=== PATIENT | female | born 1955 | race Caucasian/White ===

== ENCOUNTER 2022-12-24 19:44 | Emergency (ER) | payer OTHER, SELFPAY ==
[2022-12-24] VITALS (11 sets, daily range): BP systolic 125–151; BP diastolic 63–94; PULSE 73–101; RESP 18–20; TEMP 36.5; O2SAT 94–98; BMI 32.3
--- NOTE | 2022-12-24 20:14 | ED.GENADULT ---
HPI - General Adult General Chief complaint: Abdominal Pain Stated complaint: abd pain Time Seen by Provider: 12/24/22 19:58 Source: patient Mode of arrival: Ambulatory History of Present Illness HPI narrative: 67-year-old female who is here for abdominal pain, nausea. No fevers. Her symptoms started yesterday and progressively worsening since then. She has had her gallbladder removed and a exploratory laparotomy many years ago for an ectopic . Her last bowel movement was a couple days ago. She did pass some flatus earlier this morning. She states she feels like she can throw up but has been unable to. Has not tried anything for symptoms prior to arrival. Related Data Home Medications Medication Instructions Recorded Confirmed [centrum vitamin] 1 tab PO QDAY ##0 04/01/17 [probiotic] ##0 04/01/17 Previous Rx's Medication Instructions Recorded ciprofloxacin HCl 500 mg tablet 500 mg PO BID 10 days #20 tabs 12/24/22 (Cipro) metronidazole 500 mg tablet 500 mg PO TID 10 days #30 tabs 12/24/22 Allergies Allergy/AdvReac Type Severity Reaction Status Date / Time NSAIDS (Non-Steroidal Allergy Mild GI ISSUES Verified 12/24/22 20:04 Anti-Inflamma [NSAIDS (NON-STEROIDAL ANTI-INFLAMMA] aspirin AdvReac Unknown N/V Verified 12/24/22 20:04 codeine AdvReac Unknown N/V Verified 12/24/22 20:04 Review of Systems Constitutional Constitutional: Reports as per HPI Cardiovascular Cardiovascular: Reports system reviewed and no additional complaints, except as documented Respiratory Respiratory: Reports system reviewed and no additional complaints, except as documented Gastrointestinal Gastrointestinal: Reports system reviewed and no additional complaints, except as documented Integumentary/Breasts Skin/Breast: Reports system reviewed and no additional complaints, except as documented Neurologic Neurologic: Reports system reviewed and no additional complaints, except as documented Hematologic/Lymphatic Hematologic/Lymphatic: Reports system reviewed and no additional complaints, except as documented Exam Initial Vital Signs Initial Vital Signs: Vital Signs Temperature 97.7 F 12/24/22 20:00 Pulse Rate 101 H 12/24/22 20:00 Respiratory Rate 20 12/24/22 20:00 Blood Pressure 125/88 12/24/22 20:00 Pulse Oximetry 96 12/24/22 20:00 Oxygen Delivery Method Room Air 12/24/22 20:00 HENMT Head: normal to inspection and normocephalic GI Inspection: normal to inspection and distended Palpation: soft and No tender Skin General: no rashes or lesions noted Neuro General: patient alert, patient awake and moves all extremities Course Orders Ordered: ED Orders 12/24/22 20:05 EKG-12 Lead Stat 12/24/22 20:11 Complete Blood Count AUTO DIFF Stat Comprehensive Metabolic Panel Stat Lipase Stat 12/24/22 20:14 CT abdomen pelvis w con Stat 12/24/22 22:07 Urine Microscopic Stat Ondansetron HCl (Ondansetron 4 Mg Odt) 4 mg PO NOW PRN PRN Reason: Nausea And Vomiting Ondansetron HCl (Ondansetron 4 Mg/2 Ml Inj) 4 mg IV NOW PRN PRN Reason: Nausea And Vomiting Last Admin: 12/24/22 20:48 Dose: 4 mg Documented By: MYRON Discontinued Medications Ciprofloxacin (Ciprofloxacin 250 Mg Tablet) 500 mg PO NOW ONE Stop: 12/24/22 22:24 Last Admin: 12/24/22 22:32 Dose: 500 mg Documented By: JERRY Metronidazole (Metronidazole 500 Mg Tablet) 500 mg PO NOW ONE Stop: 12/24/22 22:24 Last Admin: 12/24/22 22:32 Dose: 500 mg Documented By: JERRY Ondansetron HCl (Ondansetron 4 Mg Odt Prepack) 1 bottle MISC SEEINSTR ONE Stop: 12/24/22 23:02 Vital Signs Vital signs: Vital Signs - 8 hr 12/24/22 20:00 12/24/22 20:15 12/24/22 20:16 Temperature 97.7 F Pulse Rate 101 H 98 H 96 H Respiratory Rate 20 Blood Pressure 125/88 Pulse Oximetry 96 95 95 Oxygen Delivery Method Room Air 12/24/22 20:16 12/24/22 20:30 12/24/22 20:30 Temperature Pulse Rate 89 Respiratory Rate Blood Pressure 151/73 H 142/82 H Pulse Oximetry 95 Oxygen Delivery Method 12/24/22 20:45 12/24/22 20:45 12/24/22 21:00 Temperature Pulse Rate 89 87 Respiratory Rate Blood Pressure 137/63 Pulse Oximetry 94 95 Oxygen Delivery Method 12/24/22 21:01 12/24/22 21:01 12/24/22 21:15 Temperature Pulse Rate 87 Respiratory Rate 18 Blood Pressure 136/94 H 140/72 Pulse Oximetry 95 Oxygen Delivery Method 12/24/22 21:15 12/24/22 21:30 12/24/22 21:30 Temperature Pulse Rate 79 74 Respiratory Rate Blood Pressure 143/65 H Pulse Oximetry 97 96 Oxygen Delivery Method Room Air 12/24/22 21:46 12/24/22 21:46 Temperature Pulse Rate 73 Respiratory Rate Blood Pressure 142/67 H Pulse Oximetry 95 Oxygen Delivery Method Room Air Medical Decision Making Lab Data Lab results reviewed: Yes I reviewed the patient's lab results. 12/24/22 20:11 12/24/22 20:11 Labs: Lab Results 12/24/22 12/24/22 Range/Units 20:11 22:07 WBC 14.3 H (4.5-11.0) X10^3/uL RBC 4.93 (4.0-5.2) X10^6/uL Hgb 15.5 (12.0-16.0) g/dL Hct 45.7 (36-46) % MCV 92.8 (80-100) fL MCH 31.5 (26-34) PG MCHC 34.0 (30-36) % RDW 13.3 (11.6-14.8) % Plt Count 215 (150-400) X10^3/uL Neut % (Auto) 84.5 H (50-75) % Lymph % (Auto) 8.9 L (25-40) % [place] % (Auto) 5.1 (3-14) % Eos % (Auto) 0.8 L (2-4) % Baso % (Auto) 0.7 (0-2) % Neut # (Auto) 93539 H (0547-9786) /uL Lymph # (Auto) 1300 (9064-0985) /uL [place] # (Auto) 700 (0-900) /uL Eos # (Auto) 100 (0-450) /uL Baso # (Auto) 100 (0-100) /uL Sodium 136 L (137-145) mmol/L Potassium 3.5 (3.4-5.1) mmol/L Chloride 100 (98-107) mmol/L Carbon Dioxide 22 (22-32) mmol/L BUN 12 (7-17) mg/dL Creatinine 0.76 (0.52-1.04) mg/dL Estimated GFR > 60 (>60) mL/min BUN/Creatinine Ratio 15.8 (6-22) Glucose 115 H (80-110) mg/dL Calcium 10.1 (8.4-10.2) mg/dL Total Bilirubin 1.2 (0.2-1.3) mg/dL AST 30 (14-36) IU/L ALT 32 (<35) IU/L Alkaline Phosphatase 65 (38-126) U/L Total Protein 8.9 H (6.3-8.2) g/dL Albumin 4.6 (3.5-5.0) g/dL Globulin 4.3 H (1.7-4.1) g/dL Albumin/Globulin Ratio 1.1 (1.0-2.8) Lipase 44 (23-300) U/L Urine RBC 1-5/hpf (0-5/HPF) Urine WBC 0-1/hpf (0-5/HPF) Ur Squamous Epith Cells 0-1 /hpf (0-5/HPF) Urine Bacteria None seen (None) Urine Dip Bedside Urine Glucose Negative Bedside Urine Bilirubin - Negative Bedside Urine Ketone - Negative Urine Specific [place] 1.000 Bedside Urine Occult Blood +/- Bedside Urine pH 6 Bedside Urine Protein - Negative Bedside Urine Urobilinogen - Negative Bedside Urine Nitrite - Negative Bedside Urine Leukocytes - Negative Esterase Point of care testing: Urine Dip Bedside Urine Glucose Negative Bedside Urine Bilirubin - Negative Bedside Urine Ketone - Negative Urine Specific [place] 1.000 Bedside Urine Occult Blood +/- Bedside Urine pH 6 Bedside Urine Protein - Negative Bedside Urine Urobilinogen - Negative Bedside Urine Nitrite - Negative Bedside Urine Leukocytes - Negative Esterase Imaging Data CT scan - abdomen/pelvis: Radiologist's Impression: PROCEDURE: CT ABDOMEN PELVIS W CON INDICATIONS: Generalized abdominal pain TECHNIQUE: After the administration of intravenous contrast, axial sections acquired from the lung bases to the pubic symphysis. Coronal and sagittal reformats were performed. For radiation dose reduction, the following was used: automated exposure control, adjustment of mA and/or kV according to patient size. COMPARISON: [facility], CT, ABDOMEN/PELVIS WITH CONTRAST, 03/19/2017, 18:27. FINDINGS: Image quality: Excellent. Lung bases: Clear lung bases. Tiny hiatal hernia. Heart: No significant findings. ABDOMEN: Liver: Normal size and mildly hypodense. Gallbladder: Surgically absent. Biliary ducts: Normal caliber. Pancreas: Normal. Spleen: Upper limits of normal at 13 cm in AP direction. Adrenal Glands: Unremarkable. Kidneys and Ureters: Symmetric enhancement. No nephrolithiasis or hydronephrosis. No hydroureter. Stomach and Bowel: Moderate diverticular disease in the sigmoid colon and focal surrounding inflammation adjacent to an impacted diverticulum in the mid to distal sigmoid. There is no extraluminal gas or adjacent drainable fluid collection. Proximally, there is liquid stool in the colon with air-fluid levels. There are several mildly prominent fluid-filled small bowel loops with air-fluid levels. The stomach is decompressed. Peritoneum: No abnormal intraperitoneal fluid. No free air. Ventral Wall: No hernias. Abdominal Nodes: No retroperitoneal or mesenteric adenopathy by size criteria. Incidental note of mild mesenteric base fat stranding to a similar degree compared to prior. Vessels: Aorta and inferior vena cava are normal in size. PELVIS: Pelvic Organs: Normal uterus and ovaries. Bladder: Decompressed. Pelvic Nodes: No enlarged lymph nodes. Miscellaneous: Mild posterior pelvic floor laxity. No hernia. Bones: Unremarkable. IMPRESSION: 1. Acute sigmoid diverticulitis without evidence of perforation or abscess. 2. Distended fluid-filled small and large bowel loops consistent with reactive ileus. There may be a partial obstruction due to distal colonic inflammation. 3. Mild hepatic steatosis. MDM Narrative Medical decision making narrative: CT scan today shows sigmoid diverticulitis which is consistent with her presentation. She has a leukocytosis. She did tolerate the oral antibiotics. I did discuss the case with Dr. Burton on-call with General surgery to discuss the ?ileus? versus ?obstruction? noted on the CT scan report. Given her presentation today and her relatively benign abdominal exam the plan will be is to discharge the patient home. Recommended a bland diet. Prescription for antibiotics sent to the pharmacy of her choice. If her symptoms worsen or she develops new symptoms or worsening pain then she will return to the emergency department for further evaluation. Patient expressed understanding and agreement with this plan. Discharge Plan Departure Patient Disposition: Home Clinical Impression: Diverticulitis Instructions: DI for Diverticulitis Activity Restrictions/Additional Instructions: It is important that you take the antibiotics as directed. Contact your primary doctor for follow-up. I do recommend a bland diet. Return to the emergency department for new or worsening symptoms. Prescriptions: New ciprofloxacin HCl [Cipro] 500 mg tablet 500 mg PO BID 10 Days Qty: 20 0RF metronidazole 500 mg tablet 500 mg PO TID 10 Days Qty: 30 0RF No Action [probiotic] Qty: 0 [centrum vitamin] 1 tab PO QDAY Qty: 0 Referrals: Jamir Suarez MD [Primary Care Provider] - Stand Alone Forms: Patient Portal/API
[2022-12-24 20:36] LABS: Add Manual Diff / Slide Review NO; Basophils Absolute Auto 100 /uL (0-100); Basophils Percent Auto 0.7 % (0-2); Eosinophils Absolute Auto 100 /uL (0-450); Eosinophils Percent Auto 0.8 % (2-4); Hematocrit 45.7 % (36-46); Hemoglobin 15.5 g/dL (12.0-16.0); Lymphocytes Absolute Auto 1300 /uL (1100-4500); Lymphocytes Percent Auto 8.9 % (25-40); Mean Corpuscular Hemoglobin 31.5 PG (26-34); Mean Corpuscular Volume 92.8 fL (80-100); Monocytes Absolute Auto 700 /uL (0-900); Monocytes Percent Auto 5.1 % (3-14); Neutrophils Absolute Auto 12100 /uL (1500-7000); Neutrophils Percent Auto 84.5 % (50-75); Platelet Count 215 X10^3/uL (150-400); Red Blood Cell Count 4.93 X10^6/uL (4.0-5.2); Red Cell Distribution Width 13.3 % (11.6-14.8); White Blood Cell Count 14.3 X10^3/uL (4.5-11.0)
[2022-12-24] MEDS: ONDANSETRON 4 MG/2 ML INJ IV (20:48)
[2022-12-24 20:49] LABS: Alanine Aminotransferase 32 IU/L (<35); Albumin 4.6 g/dL (3.5-5.0); Albumin Globulin Ratio 1.1 (1.0-2.8); Alkaline Phosphatase 65 U/L (38-126); Aspartate Aminotransferase 30 IU/L (14-36); BUN Creatinine Ratio 15.8 (6-22); Bilirubin Total 1.2 mg/dL (0.2-1.3); Blood Urea Nitrogen 12 mg/dL (7-17); Calcium 10.1 mg/dL (8.4-10.2); Carbon Dioxide 22 mmol/L (22-32); Chloride 100 mmol/L (98-107); Estimated Glomerular Filt Rate > 60 mL/min (>60); Globulin 4.3 g/dL (1.7-4.1); Glucose 115 mg/dL (80-110); HEMOLYSIS 15 (0-50); Lipase 44 U/L (23-300); Potassium 3.5 mmol/L (3.4-5.1); Sodium 136 mmol/L (137-145); Total Protein 8.9 g/dL (6.3-8.2)
[2022-12-24 22:25] LABS: Bacteria Urine None Seen; RBC Urine 1-5/HPF (0-5/HPF); Squamous Epithelial Cell Urine 0-1 /HPF (0-5/HPF)
[2022-12-24 22:26] LABS: WBC Urine 0-1/HPF (0-5/HPF)
[2022-12-24] MEDS: CIPROFLOXACIN 250 MG TABLET 500 MG PO (22:32)
[2022-12-24] MEDS: metroNIDAZOLE 500 MG TABLET PO (22:32)
[2022-12-24] MEDS: ONDANSETRON 4 MG ODT PREPACK 1 BOTTLE MISC (23:07)
== END 2022-12-24 23:17 | disposition home or self-care (01) ==
PROVIDERS: Emergency Provider Emergency Medicine; Family Provider Family Medicine; PCP Family Medicine
DX: K57.92 Diverticulitis of intestine, part unspecified, without perforation or abscess without bleeding (principal); R11.0 Nausea; R03.0 Elevated blood-pressure reading, without diagnosis of hypertension
CPT/HCPCS: 36415; 74177; 80053; 81003; 81015; 83690; 85025; 93005; 93010; 96374; 99284; J2405; Q9967

== ENCOUNTER → 2023-11-18 09:06 | Outpatient (CLI) | payer OTHER, SELFPAY ==
[2023-11-18 09:55] LABS: Add Manual Diff / Slide Review NO; Basophils Absolute Auto 100 /uL (0-100); Basophils Percent Auto 1.2 % (0-2); Eosinophils Absolute Auto 300 /uL (0-450); Eosinophils Percent Auto 4.5 % (2-4); Hematocrit 43.4 % (36-46); Hemoglobin 14.7 g/dL (12.0-16.0); Lymphocytes Absolute Auto 1200 /uL (1100-4500); Lymphocytes Percent Auto 20.5 % (25-40); Mean Corpuscular HGB Conc 33.8 % (30-36); Mean Corpuscular Hemoglobin 31.8 PG (26-34); Monocytes Absolute Auto 300 /uL (0-900); Monocytes Percent Auto 5.5 % (3-14); Neutrophils Absolute Auto 3900 /uL (1500-7000); Neutrophils Percent Auto 68.3 % (50-75); Platelet Count 164 X10^3/uL (150-400); Red Blood Cell Count 4.61 X10^6/uL (4.0-5.2); Red Cell Distribution Width 13.3 % (11.6-14.8); White Blood Cell Count 5.8 X10^3/uL (4.5-11.0)
[2023-11-18 10:03] LABS: Hemoglobin A1C% w Est Avg Glu 5.3 % (4.0-6.0)
[2023-11-18 10:15] LABS: Alanine Aminotransferase 22 IU/L (<35); Albumin 3.9 g/dL (3.5-5.0); Albumin Globulin Ratio 1.3 (1.0-2.8); Alkaline Phosphatase 52 U/L (38-126); Aspartate Aminotransferase 23 IU/L (14-36); BUN Creatinine Ratio 20.3 (6-22); Bilirubin Total 0.7 mg/dL (0.2-1.3); Blood Urea Nitrogen 15 mg/dL (7-17); Carbon Dioxide 25 mmol/L (22-32); Chloride 103 mmol/L (98-107); Cholesterol 215 mg/dL (140-199); Estimated Glomerular Filt Rate > 60 mL/min (>60); Glucose 99 mg/dL (80-110); HDL Cholesterol 41 mg/dL (40-60); HEMOLYSIS < 15 (0-50); LDL Cholesterol Calculated 138 mg/dL (<100); Potassium 4.1 mmol/L (3.4-5.1); Sodium 136 mmol/L (137-145); Total Protein 6.9 g/dL (6.3-8.2); Triglycerides 182 mg/dL (35-150)
[2023-11-18 10:41] LABS: Thyroid Stimulating Hormone 2.79 uIU/mL (0.47-4.68)
[2023-11-18 16:38] LABS: HIV 1 & 2 Ab/Ag 4th Gen Combo NEGATIVE (NEGATIVE); Hep C Virus Ab w/Reflex Quant NEGATIVE s/c (NEGATIVE)
== END ==
PROVIDERS: Family Provider Family Medicine; PCP Family Medicine; Referring Provider Family Medicine; Visit Provider Family Medicine
DX: Z00.00 Encounter for general adult medical examination without abnormal findings (principal); K57.30 Diverticulosis of large intestine without perforation or abscess without bleeding; E78.00 Pure hypercholesterolemia, unspecified
CPT/HCPCS: 36415; 80053; 80061; 83036; 84443; 85025; 86803; 87389